=== PATIENT | female | born 1970 | race Caucasian/White ===

== ENCOUNTER 2019-11-29 10:27 | Emergency (ER) | payer OTHER ==
[2019-11-29] MEDS ORDERED: Norflex 60 MG/2 ML IM ONE (10:59)
[2019-11-29] MEDS ORDERED: TORAdol 30 mg Injection IM ONE (10:59)
--- NOTE | 2019-11-29 11:08 | ERPHSYRPT ---
- History of Present Illness Time Seen by Provider: 11/29/19 10:43 Source: patient Exam Limitations: no limitations Patient Subjective Stated Complaint: Pt states that she has been working outside alot and now her left shoulder blade is in constant pain and goes down her left arm and all her fingers are numb on the left hand except her little finger Triage Nursing Assessment: Pt brought herself to the ER, tachycardic, pain radiates down left arm and left hand fingers numb, unable to turn head fully side to side, pulses normal, rates pain 04/15 Physician History: 49 years old female presented in the ER with a chief complaint of left side shoulder blade area/left side neck pain for the last 2 to 3 days after working quite a bit outside in the yard involving lifting and moving heavy stuff. Patient report dull aching to burning pain with radiation to left arm and at times feel numbness in the fingers. She has difficulty moving her neck on the left side because of spasm in the neck muscle. Does not have any difficulty movements of shoulder. Denies any chest pain palpitations or shortness of breath otherwise. She has been applying ice and heat along with massage which does help. There is no pain in the spines. Timing/Duration: day(s) (3), gradual onset, worse Method of Injury: unknown Quality: burning, dull Back Pain Location: paraspinous muscles Severity of Pain-Max: moderate Severity of Pain-Current: moderate Modifying Factors: Improves With: cold therapy Associated Symptoms: denies symptoms Previous symptoms: no prior history Allergies/Adverse Reactions: No Known Drug Allergies Allergy (Unverified 03/10/12 12:40) Home Medications: Lamotrigine [Lamictal] 150 mg PO DAILY 03/10/12 [History] Lorazepam [Ativan] 1 mg PO BID 03/10/12 [History] Hx Tetanus, Diphtheria Vaccination/Date Given: Yes (2005) Hx Influenza Vaccination/Date Given: No Hx Pneumococcal Vaccination/Date Given: No Travel Risk - International Travel Have you traveled outside of the country in past 3 weeks: No Have you or anyone close to you been diagnosed with or: No Do your reside in a community with a known COVID-19 case?: Yes If Yes where:: [place] - Coronavirus Screening Has patient experienced Coronavirus symptoms: No - Review of Systems Constitutional: No Symptoms Eyes: No Symptoms Ears, Nose, & Throat: No Symptoms Respiratory: No Symptoms Cardiac: No Symptoms Abdominal/Gastrointestinal: No Symptoms Genitourinary Symptoms: No Symptoms Musculoskeletal: Back Pain, Neck Pain, Myalgias Skin: No Symptoms Neurological: No Symptoms Psychological: No Symptoms Endocrine: No Symptoms Hematologic/Lymphatic: No Symptoms Immunological/Allergic: No Symptoms - Past Medical History Pertinent Past Medical History: Yes Neurological History: No Pertinent History ENT History: No Pertinent History Cardiac History: No Pertinent History Respiratory History: No Pertinent History Endocrine Medical History: No Pertinent History Musculoskeletal History: No Pertinent History GI Medical History: No Pertinent History History: No Pertinent History Psycho-Social History: Bipolar Female Reproductive Disorders: No Pertinent History - Past Surgical History Past Surgical History: Yes Neuro Surgical History: No Pertinent History Cardiac: No Pertinent History Respiratory: No Pertinent History Gastrointestinal: Exploratory Laparoscopy Musculoskeletal: Joint Replacement Female Surgical History: Section, Tubal Ligation, Other - Social History Smoking Status: Current every day smoker How long have you smoked: 32 yrs Exposure to second hand smoke: Yes Drug Use: none Patient Lives Alone: No Significant Family History: no pertinent family hx - Female History Hx Now: No (tubal) - Nursing Vital Signs Nursing Vital Signs: Initial Vital Signs Temperature 98.4 F 11/29/19 10:36 Pulse Rate 107 H 11/29/19 10:36 Blood Pressure 126/80 11/29/19 10:36 O2 Sat by Pulse Oximetry 98 11/29/19 10:36 Pain Scale Pain Intensity [Left Upper 10 Back] Pain Intensity 5 - Physical Exam General Appearance: no apparent distress, alert, anxiety Eye Exam: eyes nml inspection Ears, Nose, Throat Exam: normal ENT inspection, pharynx normal Neck Exam: normal inspection, supple, No non-tender (Left-sided neck muscle tenderness), No full range of motion Respiratory Exam: normal breath sounds, chest tenderness (Left paraspinal area/ shoulder blade area muscle stiffness and tenderness to palpation.), lungs clear Cardiovascular Exam: regular rate/rhythm, normal heart sounds Gastrointestinal Exam: soft Back Exam: normal inspection, normal range of motion, CVA tenderness, No vertebral tenderness Extremity Exam: normal inspection, normal range of motion Neurologic Exam: alert, oriented x 3, cooperative, medical editor II-XII nml as tested, normal mood/affect, nml cerebellar function, sensation nml Skin Exam: normal color SpO2 Interpretation: normal SpO2: 98 O2 Delivery: Room Air - Course Nursing assessment & vital signs reviewed: Yes EKG Interpreted by Me: RATE (98), Sinus Rhythm, NORMAL AXIS, NORMAL INTERVALS, NORMAL QRS Ordered Tests: Active Orders 24 hr Category Date Time Status EKG-ER Only STAT Care 11/29/19 11:03 Active Medication Summary Discontinued Medications Generic Name Dose Route Start Last Admin Trade Name Danielle PRN Reason Stop Dose Admin Ketorolac Tromethamine 30 mg 11/29/19 10:59 11/29/19 11:15 Toradol 30 Mg Injection IM 11/29/19 11:00 30 mg STAT ONE Administration Ketorolac Tromethamine Confirm 11/29/19 11:11 Toradol 30 Mg Injection Administered 11/29/19 11:12 Dose 30 mg .ROUTE .STK-MED ONE Orphenadrine Citrate 60 mg 11/29/19 10:59 11/29/19 11:14 Norflex 60 Mg/2 Ml IM 11/29/19 11:00 60 mg STAT ONE Administration Orphenadrine Citrate Confirm 11/29/19 11:11 Norflex 60 Mg/2 Ml Administered 11/29/19 11:12 Dose 60 mg .ROUTE .STK-MED ONE - Progress Progress: improved, pain not gone completely, re-examined Progress Note: 49 years old is evaluated for left-sided shoulder blade area and neck pain. Patient has clear muscular tenderness and stiffness. No chest pain otherwise. EKG did not show any acute ischemic changes. She is given Toradol and Norflex, on reevaluation feeling better. She does not have any vertebral tenderness at all. Is more of a trapezius muscle area. I will start her on NSAID and muscle relaxant to go home and outpatient follow-up. Discussed signs symptoms of worsening needing return to ER which she seems understanding. Stable for discharge. - Departure Departure Disposition: Home Clinical Impression: Muscle spasm Condition: Stable Critical Care Time: No Referrals: MADI RODRIGUEZ DO [ACTIVE STAFF] - (1-2 days for reevaluation) Instructions: Muscle Spasms (DC) Additional Instructions: Take Tylenol/ibuprofen along with muscle relaxants as needed. Avoid exertional activities. Follow-up with primary care for reevaluation. Return to ER for intractable pain, or if it start having chest pain shortness of breath or palpitations. Prescriptions: Ibuprofen 600 mg PO Q6HPRN PRN 10 Days #20 tablet PRN Reason: Pain Cyclobenzaprine HCl [Flexeril] 10 mg PO TID PRN #20 tablet PRN Reason: Muscle Spasms
[2019-11-29] MEDS ORDERED: Norflex 60 MG/2 ML ONE (11:11)
[2019-11-29] MEDS ORDERED: TORAdol 30 mg Injection ONE (11:11)
[2019-11-29 12:19] VITALS: BP 121/85; PULSE 86
[2019-11-29 12:32] VITALS: O2SAT 98
== END 2019-11-29 12:43 | disposition home or self-care (01) ==
LOC: ED 10:27
DX: M62.838 Other muscle spasm (principal); M54.2 Cervicalgia; R20.0 Anesthesia of skin; M25.512 Pain in left shoulder; X50.0XXA Overexertion from strenuous movement or load, initial encounter; X50.9XXA Other and unspecified overexertion or strenuous movements or postures, initial encounter; Y93.9 Activity, unspecified; Y92.9 Unspecified place or not applicable
CPT/HCPCS: 93005; 96372; 99284; J1885; J2360